=== PATIENT | male | born 1945 | race Caucasian/White ===

== ENCOUNTER 2016-08-14 10:59 | Emergency (ER) | payer MEDICARE, OTHER ==
--- NOTE | 2016-08-14 11:20 | ER Document Report ---
ED Dizziness/Weakness - General Chief Complaint: General Weakness Stated Complaint: WEAKNESS Notes: The patient is a 71-year-old male, past medical history ESRD ([facility]), AAA repair about 4 months ago, multiple intra-abdominal abscesses with drainage in place, presents with 1 day of generalized weakness, watery diarrhea and left lower quadrant abdominal pain that started earlier today. He is also feeling short of breath and his pulse ox was 78% on room air when EMS arrived. He was given a 250 normal saline bolus by EMS. Denies chest pain, cough, fevers, back pain, urinary symptoms, blood in stool, nausea, vomiting, focal weakness, numbness, headache or tingling. TRAVEL OUTSIDE OF THE [place] IN LAST 30 DAYS: No - Related Data Allergies/Adverse Reactions: No Known Allergies Allergy (Verified 08/14/16 11:13) Home Medications: Current Home Medications Clopidogrel Bisulfate [Plavix 75 mg Tablet] 75 mg PO DAILY 08/14/16 [History] Ferrous Sulfate [Iron] 325 mg PO BID 08/14/16 [History] Metoprolol Succinate [Toprol Xl 50 mg Tab.sr] 50 mg PO DAILY 08/14/16 [History] Multivits-Minerals/FA/Lycopene [One Daily Men's Health Tablet] 1 each PO [id number] 08/14/16 [History] Past Medical History - General Information source: Relative - Social History Smoking Status: Never Smoker Chew tobacco use (# tins/day): No Frequency of alcohol use: None Drug Abuse: None Family History: None Patient has suicidal ideation: No Patient has homicidal ideation: No - Past Medical History Cardiac Medical History: Denies: Hx Coronary Artery Disease, Hx Heart Attack, Hx Hypertension Pulmonary Medical History: Denies: Hx Asthma, Hx Bronchitis, Hx COPD, Hx Pneumonia Neurological Medical History: Denies: Hx Cerebrovascular Accident, Hx Seizures Renal/ Medical History: Denies: Hx Peritoneal Dialysis Musculoskeltal Medical History: Reports Hx Arthritis - hands - Immunizations Hx Diphtheria, Pertussis, Tetanus Vaccination: - unknown Review of Systems - Review of Systems Notes: REVIEW OF SYSTEMS: CONSTITUTIONAL: -fevers, -chills EENT: -eye pain, -difficulty swallowing, -nasal congestion CARDIOVASCULAR:-chest pain, -syncope. RESPIRATORY: -cough, +SOB GASTROINTESTINAL: +abdominal pain, - nausea, -vomiting, +diarrhea GENITOURINARY: -dysuria, -hematuria MUSCULOSKELETAL: -back pain, -neck pain SKIN: -rash or skin lesions. HEMATOLOGIC: -easy bruising or bleeding. LYMPHATIC: -swollen, enlarged glands. NEUROLOGICAL: -altered mental status or loss of consciousness, -headache, - neurologic symptoms PSYCHIATRIC: -anxiety, -depression. ALL OTHER SYSTEMS REVIEWED AND NEGATIVE. Physical Exam - Vital signs Vitals: Temp Pulse Resp BP Pulse Ox 96.4 F L 65 18 90/66 L 100 08/14/16 11:00 08/14/16 11:00 08/14/16 11:00 08/14/16 11:00 08/14/16 11:00 HR 71, BP 95/65, 78% on RA (91% on 4L nasal cannula), RR 18 - Notes Notes: PHYSICAL EXAMINATION: GENERAL: Ill-appearing. HEAD: Atraumatic, normocephalic. EYES: Pupils equal round and reactive to light, extraocular movements intact, sclera anicteric, conjunctiva are normal. ENT: nares patent, oropharynx clear without exudates. Moist mucous membranes. NECK: Normal range of motion, supple without lymphadenopathy LUNGS: Breath sounds clear to auscultation bilaterally and equal. No wheezes rales or rhonchi. HEART: Regular rate and rhythm without murmurs. Dialysis catheter in place over right upper chest wall. Recent laceration with jose next to dialysis catheter, no erythema or discharge out of the wound ABDOMEN: Tenderness and swelling over left lower quadrant, normal bowel sounds EXTREMITIES: Normal range of motion, no pitting or edema. No cyanosis. BACK: Drain out of right mid back with a small amount of serous fluid in bag. NEUROLOGICAL: Cranial nerves grossly intact. Normal speech, normal gait. Normal sensory, motor, and reflex exams. SKIN: Warm, Dry, pale. Course - Re-evaluation Re-evalutation: Patient's blood pressure improved after the fluids and was not having any worsening abdominal pain. At 14:20, blood transfusion was started for a few minutes and then patient began to have worsening shortness of breath, he became tachypneic and hypotensive. Blood immediately stopped. No wheezing, rash or airway obstruction. Patient's blood pressure improved from 60/30-85/50 after a liter of fluids. Rushed over to CT scan with patient and received a direct call from the radiologist about a leaking AAA. Called [facility] at 15:15. Awaiting callback from surgeon. Will obtain 2 more units of PRBCs and transfuse. Patient's blood pressure at 1520 is 105/65. 08/14/16 15:36 No call back from [facility]. Spoke to [facility] and Dr. Ruiz (Vascular Surgery) has accepted patient at 15:30. Arranging transportation at this time. Recommends permissive hypotension (BP ~100). 08/14/16 15:47 Dr. Baker ([facility] Vascular Surgeon who performed first AAA repair in 04/18) called back and has accepted patient. would like to go to [facility] because that is where the first surgery was performed. 08/14/16 16:14 Patient intubated because he will be going straight to surgery and mental status was worsening. Helicopter crew in the ER. Will send with 2 more units of PRBCs with crew. - Vital Signs Vital signs: Temp Pulse Resp BP Pulse Ox 97.7 F 75 8 L 80/57 L 100 08/14/16 15:53 08/14/16 15:00 08/14/16 16:16 08/14/16 16:16 08/14/16 16:16 - Laboratory Result Diagrams: 08/14/16 11:56 08/14/16 11:56 Laboratory results interpreted by me: 08/14/16 08/14/16 08/14/16 11:56 11:56 11:56 RBC 1.93 L Hgb 6.0 L Hct 17.6 L RDW 18.6 H Seg Neuts % (Manual) 97 H Lymphocytes % (Manual) 2 L Monocytes % (Manual) 1 L Abs Neuts (Manual) 9.0 H Abs Lymphs (Manual) 0.2 L Sodium 133.2 L Chloride 94 L Carbon Dioxide 20 L BUN 38 H Creatinine 7.57 H Est GFR ( Amer) 9 L Est GFR (Non-Af Amer) 7 L Calcium 8.2 L Creatine Kinase 25 L NT-Pro-B Natriuret Pep Crossmatch See Detail 08/14/16 12:10 RBC Hgb Hct RDW Seg Neuts % (Manual) Lymphocytes % (Manual) Monocytes % (Manual) Abs Neuts (Manual) Abs Lymphs (Manual) Sodium Chloride Carbon Dioxide BUN Creatinine Est GFR ( Amer) Est GFR (Non-Af Amer) Calcium Creatine Kinase NT-Pro-B Natriuret Pep H Crossmatch - EKG Interpretation by Me EKG shows normal: Sinus rhythm, [place], Intervals - Prolonged QTc (500), QRS Complexes, ST-T Waves Procedures - Intubation Orotracheal Time of Intubation: 15:45 Airway evaluation: Normal anatomy Mallampati Classification: Class 1 Medications: Ketamine, Other - Rocuronium Intubation method: Orotracheal Blade type: Jesus Blade size: 4 ETT size: 7.5 ETT secured at: Lips ETT secured at (cm): 23 Breath Sounds after Intubation: Equal End tidal CO2 confirmed: Yes Post Intubation Xray: Yes Intubation Complications: No complications Critical Care Note - Critical Care Note Total time excluding time spent on procedures (mins): 120 Discharge - Discharge Clinical Impression: Hypoxia, Leaking abdominal aortic aneurysm (AAA) Anemia Qualifiers: Anemia type: unspecified type Qualified Code(s): D64.9 - Anemia, unspecified Condition: Stable [facility]position: [facility] Admitting Provider: Dr. Baker
[2016-08-14 12:28] LABS: HEMATOCRIT 17.6 % (37.9-51.0); HGB HCT DIFFERENCE 0.4; MEAN CORPUSCULAR HEMOGLOBIN 30.9 pg (27.0-33.4); MEAN CORPUSCULAR VOLUME 91 fl (80-97); RED BLOOD COUNT 1.93 10^6/uL (4.35-5.55); RED CELL DISTRIBUTION WIDTH 18.6 % (11.5-14.0); WHITE BLOOD COUNT 9.3 10^3/uL (4.0-10.5)
[2016-08-14] MEDS ORDERED: NORMAL SALINE 250 ML IV PRN ×3 (12:35→16:15)
[2016-08-14 12:41] LABS: ANION GAP 19 (5-19); BLOOD UREA NITROGEN 38 mg/dL (7-20); CALCIUM 8.2 mg/dL (8.4-10.2); CARBON DIOXIDE 20 mmol/L (22-30); CHLORIDE 94 mmol/L (98-107); CREATINE KINASE 25 U/L (55-170); CREATININE RESULT 7.57 mg/dL (0.52-1.25); GLUCOSE 109 mg/dL (75-110); POTASSIUM 4.6 mmol/L (3.6-5.0); SODIUM 133.2 mmol/L (137-145)
[2016-08-14 12:52] LABS: ANISOCYTOSIS 2+; BASOPHILS % (MANUAL) 0 % (0-2); EOSINOPHILS % (MANUAL) 0 % (0-6); LYMPHOCYTES % (MANUAL) 2 % (13-45); OVALOCYTES SLIGHT; POIKILOCYTOSIS SLIGHT; TOTAL CELLS COUNTED 100
[2016-08-14 12:58] LABS: TROPONIN I 0.046 ng/mL
[2016-08-14] MEDS ORDERED: FENTANYL CITRATE INJ/PF 100 MCG/2 ML AMPUL IV ONE (14:23)
[2016-08-14] MEDS ORDERED: METHYLPREDNISOLONE INJ 125 MG/2 ML SDV IV ONE (14:23)
[2016-08-14] MEDS ORDERED: FAMOTIDINE INJ/PF 20 MG/2 ML SDV IV ONE ×2 (14:23→14:24)
[2016-08-14] MEDS ORDERED: DIPHENHYDRAMINE HCL 50 MG/ML VIAL IV ONE (14:23)
[2016-08-14] MEDS ORDERED: DIPHENHYDRAMINE HCL 50 MG/ML VIAL ONE (14:24)
[2016-08-14] MEDS ORDERED: METHYLPREDNISOLONE INJ 125 MG/2 ML SDV ONE (14:24)
[2016-08-14] MEDS ORDERED: NORMAL SALINE 1000 ML 1,000 ML IV PRN (15:10)
[2016-08-14] MEDS ORDERED: KETAMINE HCL INJ 500 MG/10 ML VIAL IV ONE (16:12)
[2016-08-14] MEDS ORDERED: ROCURONIUM BROMIDE INJ 50 MG/5 ML VIAL IV ONE ×2 (16:12→19:20)
[2016-08-14 16:21] VITALS: BP 80/57
--- NOTE | 2016-08-15 14:58 | EKG REPORT ---
SEVERITY:- ABNORMAL ECG - SINUS RHYTHM BORDERLINE PROLONGED QT INTERVAL : Confirmed by: Angeli Gan 15-Aug-2016 14:57:30
== END 2016-08-14 16:37 | disposition short-term general hospital (02) ==
LOC: ER 10:59
PROC: 0BH17EZ Insertion of Endotracheal Airway into Trachea, Via Natural or Artificial Opening (ICD-10-PCS; principal; 2016-08-14)
DX: R09.02 Hypoxemia (principal); I71.4 Abdominal aortic aneurysm, without rupture; D64.9 Anemia, unspecified; R53.1 Weakness; N18.6 End stage renal disease; Z79.899 Other long term (current) drug therapy; R10.32 Left lower quadrant pain
CPT/HCPCS: 93005; 99291; 99292; 96361; 96374; 96375; 86900; 86901; 36415; 36430; 86850; 82550; 85025; 82272; 85045; 80048; 84484; 86920; 83880; 71010; 74178; 93010; 31500; P9016; J3490 ×2; J1200; J3010; J2930; J7030; S0028